=== PATIENT | female | born 1950 | race Caucasian/White ===

== ENCOUNTER 2022-01-23 17:54 | Emergency (ER) | payer MEDICARE, MEDICAID, SELFPAY ==
[2022-01-23 18:10] VITALS: BP 111/77; PULSE 84; RESP 16; TEMP 36.3; O2SAT 94; BMI 29.9
--- NOTE | 2022-01-23 18:15 | XRR_ITS ---
PROCEDURE INFORMATION: Exam: XR Chest Exam date and time: 01/23/2022 6:29 PM Age: 71 years old Clinical indication: Shortness of breath; Prior surgery; Surgery date: 6+ months; Surgery type: Defib, pacer; Additional info: SOB TECHNIQUE: Imaging protocol: XR of the chest. Views: 1 view. COMPARISON: CR Chest 1 view [id number] 03/21/2019 3:34 PM FINDINGS: Tubes, catheters and devices: Left chest ICD is present. Left chest implanted Loop recorder device is present. Thoracic epidural stimulator device is present unchanged in position from prior. Lungs: Emphysematous lung features. No focal airspace consolidation. Pleural spaces: Unremarkable. No pleural effusion. No pneumothorax. Heart/Mediastinum: Aortic valve replacements present. Moderate cardiomegaly. Bones/joints: Surgical hardware fixates proximal right humerus from old fracture. XR/XR chest 1V portable [id number] IMPRESSION: No acute pulmonary disease.
--- NOTE | 2022-01-23 18:15 | ECG_ITS ---
[facility] Test Date: 2022-01-23 Pat Name: Tiana Mayfield Department: Room: Gender: Female Chief Projectionist: : [id number] Requested By: Cody Mock Order Number: [id number] Celeste MD: Susannah Chaudhry M.D. Measurements Intervals [place] Rate: 77 P: 246 CA: 364 QRS: -45 QRSD: 172 T: 119 QT: 450 QTc: 511 Interpretive Statements ELECTRONIC ATRIAL PACEMAKER ELECTRONIC VENTRICULAR PACEMAKER ABNORMAL RHYTHM ECG No previous ECG available for comparison Electronically Signed On 01-24-2022 6:07:54 CDT by Susannah Chaudhry M.D. [id number]
--- NOTE | 2022-01-23 18:28 | CTR_ITS ---
PROCEDURE INFORMATION: Exam: CTA Chest With Contrast Exam date and time: 01/23/2022 8:03 PM Age: 71 years old Clinical indication: Cough and dyspnea and wheezing; Cough with hemorrhage; Prior surgery; Surgery date: 6+ months; Surgery type: Partial mastectomy/ defib/aaa graft; Patient HX: HX of pulmonary emboli /aortic valve replacement. Multiple pneumonias in the past/increasing cough over the last 2 days /this morning coughing up small amount of blood. Some slight dyspnea and wheezing denies any chest pain. No d dimer done; Additional info: SOB TECHNIQUE: Imaging protocol: Computed tomographic angiography of the chest with contrast. 3D rendering (Not supervised by radiologist): MIP and/or 3D reconstructed images were created by the technologist. Radiation optimization: All CT scans at this facility use at least one of these dose optimization techniques: automated exposure control; mA and/or kV adjustment per patient size (includes targeted exams where dose is matched to clinical indication); or iterative reconstruction. Contrast material: OMNI 350; Contrast volume: 75 ml; Contrast route: INTRAVENOUS (IV); COMPARISON: CR (CHEST, ) 01/23/2022 6:29 PM RADIATION DOSE METRICS: Total DLP (mGy-cm): 573.8 FINDINGS: Tubes, catheters and devices: Left chest ICD is present. Thoracic epidural stimulator device with unremarkable position. Pulmonary arteries: Normal. No pulmonary emboli. Aorta: Unremarkable. No aortic aneurysm. No aortic dissection. Veins: Partially visible IVC filter in the upper abdomen. Lungs: Partially calcified granuloma in the lingula. Emphysematous lung changes with coarse reticular interstitial appearance. Negative for space consolidation. Negative for endobronchial obstruction. No peripheral honeycombing. No bronchiectasis. Mild mosaic attenuation features. Pleural spaces: Unremarkable. No pneumothorax. No pleural effusion. Heart: Multichamber cardiac dilation. Negative for pericardial effusion. Aortic valve replacement. Mediastinal space: Unremarkable thoracic esophagus. Lymph nodes: Unremarkable. No enlarged lymph nodes. Bones/joints: Ununited median sternotomy. No acute thoracic fractures. The thoracic spine demonstrates moderate degenerative changes at multiple levels. Soft tissues: Unremarkable. CT/CT angio chest PE protcl [id number] IMPRESSION: 1. Negative for pulmonary embolism. 2. No focal pneumonia.
[2022-01-23 18:44] VITALS: BP 138/84; PULSE 91; RESP 16; O2SAT 94
--- NOTE | 2022-01-23 18:44 | ED_ITS ---
HPI - URI/Sore Throat General: Chief Complaint: Upper Respiratory Infection Stated Complaint: coughing up blood/raspy/low heart rate Time Seen by Provider: 01/23/22 18:01 Source: patient and EMS Mode of arrival: EMS Limitations: no limitations History of Present Illness: 71-year-old female who has multiple medical issues including history of pulmonary emboli she is on Eliquis long-term she also had aortic valve replacement. States she is had multiple pneumonias in the past states that she has had an increasing cough over the last 2 days became concerned because this morning she was coughing up some blood she states it was a small amount. She denies any worsening or improving factors does have some slight dyspnea and wheezing she wears oxygen at home as needed her pulse ox here is 94% on room air denies any chest pain. Associated symptoms: Deny abdominal pain, chills, chest pain, diarrhea, fever(s), headache(s), nausea or vomiting Review of Systems Const: Denies: fever(s), chills, body aches or change in appetite Eyes: Denies: blurry vision or eye discomfort ENMT: Denies: throat pain or dental pain Card: Denies: chest pain Resp: Reports: dyspnea, non-productive cough and wheezing GI: Denies: abdominal pain, nausea, vomiting or diarrhea : Denies: dysuria Musc: Denies: neck pain or back pain Skin/Breast: Denies: rash Neuro: Denies: headache(s) Psych: Denies: depression Florin/Lymph: Denies: easy bruising All/Imm: Denies: urticaria PFS ED PFSH: Medical History (Updated 01/23/22 @ 20:32 by Cody Mock MD) Pulmonary emboli Social History (Updated 01/23/22 @ 18:45 by Cody Mock MD) Substance/Drug Use: never Physical Exam Const: COMMON NORMALS: no acute distress, patient oriented x3 and healthy appearing HENMT: COMMON NORMALS: normocephalic and atraumatic HEAD & SCALP: normocephalic and atraumatic Eye: COMMON NORMALS: Equal, round and reactive pupils present and EOMs intact bilaterally PUPIL: Yes Equal, round and reactive pupils present Neck/C-Spine: COMMON NORMALS: full ROM and supple Chest: COMMONS NORMALS: normal inspection of the chest and normal palpation of entire chest wall Resp: COMMON NORMALS: No retractions and No use of accessory muscles AUSCULTATION: wheezes Cardio: COMMON NORMALS: regular rate, regular rhythm and No murmurs present (Cardio) RATE: regular rate RHYTHM: regular rhythm GI: COMMON NORMALS: Normal to inspection, nondistended, normoactive bowel sounds present, Soft to palpation, non-tender and no masses PALPATION: Yes Soft to palpation Extremity: COMMON NORMALS: normal to inspection and full ROM Neuro: COMMON NORMALS: patient oriented x3, moves all extremities and no focal motor deficits Psych: COMMON NORMALS: mental status grossly normal, Normal thought process present and cooperative THOUGHT PROCESS: Normal thought process present Skin: COMMON NORMALS: no rashes or lesions noted and no wounds GENERAL SKIN EXAM: no rashes or lesions noted Course Vital Signs: Vital signs: Vital Signs Temperature 97.3 F L 01/23/22 18:10 Pulse Rate 85 01/23/22 20:35 Respiratory Rate 20 H 01/23/22 20:35 Blood Pressure 127/94 01/23/22 20:35 Pulse Oximetry 93 01/23/22 19:24 MDM - URI/Sore Throat Medical Decision Making Patient presents here with some hemoptysis could be from a viral infection she is well-appearing here has had no hemoptysis here CT scan showed no pneumonia or PE blood works normal as well she stable for discharge is to follow-up with PCP in 2 to 4 days return if worsening she understands and agrees to plan. Lab Data : 01/23/22 18:43 01/23/22 18:43 Radiology Impressions Chest X-Ray 01/23/22 18:15 IMPRESSION: No acute pulmonary disease. Chest CTA 01/23/22 18:28 IMPRESSION: 1. Negative for pulmonary embolism. 2. No focal pneumonia. Laboratory Results WBC 8.3 10^3/uL (4.0-10.0) 01/23/22 18:43 RBC 4.57 10^6/uL (4.1-5.3) 01/23/22 18:43 Hgb 12.7 g/dL (11.5-15.3) 01/23/22 18:43 Hct 40.3 % (37.0-47.0) 01/23/22 18:43 MCV 88.2 fl (81-99) 01/23/22 18:43 MCH 27.8 pg (28.0-34.0) L 01/23/22 18:43 MCHC 31.5 g/dL (30.0-36.0) 01/23/22 18:43 RDW 15.6 % (12.1-15.1) H 01/23/22 18:43 Plt Count 224 10^3/cmm (130-400) 01/23/22 18:43 MPV 11.5 fL (7.4-10.4) H 01/23/22 18:43 Neut % (Auto) 50.2 % 01/23/22 18:43 Lymph % (Auto) 33.2 % 01/23/22 18:43 [place] % (Auto) 7.6 % 01/23/22 18:43 Eos % (Auto) 7.7 % 01/23/22 18:43 Baso % (Auto) 1.1 % 01/23/22 18:43 Neut # (Auto) 4.15 10^3/uL (1.8-7.7) 01/23/22 18:43 Lymph # (Auto) 2.8 10^3/uL (0.8-4.8) 01/23/22 18:43 [place] # (Auto) 0.6 10^3/uL (0.2-0.9) 01/23/22 18:43 Eos # (Auto) 0.6 10^3/uL (0.0-0.8) 01/23/22 18:43 Baso # (Auto) 0.1 10^3/uL (0.0-0.1) 01/23/22 18:43 Nucleated RBC % (auto) 0 % 01/23/22 18:43 Nucleated RBCs # 0.0 /100WBC 01/23/22 18:43 PT 14.80 SECONDS (12.1-14.9) 01/23/22 19:02 INR 1.12 (0.8-1.2) 01/23/22 19:02 Sodium 137 mmol/L (136-145) 01/23/22 18:43 Potassium 4.5 mmol/L (3.5-5.1) 01/23/22 18:43 Chloride 96 mmol/L (98-107) L 01/23/22 18:43 Carbon Dioxide 32 mmol/L (22-29) H 01/23/22 18:43 Anion Gap 13.5 (5-19) 01/23/22 18:43 BUN 24 mg/dL (8-23) H 01/23/22 18:43 Creatinine 1.0 mg/dL (0.5-0.9) H 01/23/22 18:43 GFR Calculation Not Reportable 01/23/22 18:43 Glucose 101 mg/dL (65-115) 01/23/22 18:43 Calculated Osmolality 288 mOsm/kg (285-295) 01/23/22 18:43 Calcium 8.9 mg/dL (8.5-10.5) 01/23/22 18:43 Total Bilirubin 0.8 mg/dL (0.15-1.2) 01/23/22 18:43 AST 23 U/L (0-32) 01/23/22 18:43 ALT 15 U/L (0-33) 01/23/22 18:43 Alkaline Phosphatase 152 IU/L (35-105) H 01/23/22 18:43 NT-Pro-B Natriuret Pep 1786 pg/mL (0-125) H 01/23/22 18:43 Total Protein 7.8 g/dL (6.6-8.7) 01/23/22 18:43 Albumin 4.3 g/dL (3.5-5.2) 01/23/22 18:43 Globulin 3.5 g/dL (1.3-4.6) 01/23/22 18:43 Influenza Type A Ag Negative (Negative) 01/23/22 19:02 Influenza Type B Ag Negative (Negative) 01/23/22 19:02 EKG Data EKG 1: I personally reviewed and interpreted this EKG as follows: EKG interpretation date: 01/23/22 EKG interpretation time: 19:01 Interpretation: atrial paced hr [address] or t wave abnormalities qrs 172 qtc 482 Discharge Plan Discharge Patient Disposition: Home Clinical Impression: Upper respiratory infection Prescriptions: No Action atorvastatin 40 mg tablet 40 mg PO DAILY 0RF buspirone 5 mg tablet 5 mg PO TID 0RF potassium chloride 10 mEq capsule, extended release 10 meq PO BID 0RF cephalexin 500 mg capsule 500 mg PO TID 0RF pantoprazole 40 mg tablet,delayed release (DR/EC) 40 mg PO DAILY 0RF bumetanide 1 mg tablet 1 mg PO DAILY PRN (Reason: Edema) 0RF metoprolol succinate 25 mg tablet extended release 24 hr 25 mg PO DAILY 0RF fluoxetine 20 mg capsule 20 mg PO DAILY 0RF levothyroxine 112 mcg tablet 112 mcg PO DAILY 0RF midodrine 10 mg tablet 10 mg PO BID 0RF duloxetine 60 mg capsule,delayed release(DR/EC) 60 mg PO DAILY 0RF pregabalin 150 mg capsule 150 mg PO TID@05,12,17 0RF pregabalin 200 mg capsule 200 mg PO DAILY@1700 0RF Rx Instructions: Take with 150mg in the evening Eliquis 5 mg tablet 5 mg PO BID 0RF Entresto 24-26 mg tablet 1 tab PO BID 0RF Zyrtec 10 mg Tablet 10 mg PO DAILY PRN (Reason: Allergy Symptoms) 0RF docusate sodium 100 mg Capsule 100 mg PO BID 0RF aspirin 81 mg Tablet,Chewable 81 mg PO DAILY 0RF Therems-M 9 mg iron-400 mcg Tablet 1 tab PO DAILY 0RF PreserVision AREDS-2 250-90-40-1 mg Capsule 1 tab PO BID 0RF Discharge Orders: Discharge ED (Routine); Ordered 01/23/22 Ordered By: Cody Mock Discharge Diet: Advance as tolerated Discharge Activity: Resume usual activity Patient Instructions: Hemoptysis Coding Level of Care Code ED Fibre [place] for [facility] Fwd Exam Comprehensive
[2022-01-23 18:49] LABS: Basophils # 0.1 10^3/uL (0.0-0.1); Basophils % 1.1 %; Eosinophils # 0.6 10^3/uL (0.0-0.8); Eosinophils % 7.7 %; Hematocrit 40.3 % (37.0-47.0); Hemoglobin 12.7 g/dL (11.5-15.3); Lymphocytes # 2.8 10^3/uL (0.8-4.8); Lymphocytes % 33.2 %; Mean Corpuscular HGB Conc 31.5 g/dL (30.0-36.0); Mean Corpuscular Hemoglobin 27.8 pg (28.0-34.0); Mean Corpuscular Volume 88.2 fl (81-99); Mean Platelet Volume 11.5 fL (7.4-10.4); Monocytes # 0.6 10^3/uL (0.2-0.9); Monocytes % 7.6 %; Neutrophils # 4.15 10^3/uL (1.8-7.7); Neutrophils % 50.2 %; Nucleated Red Blood Cells % 0 %; Platelet Count 224 10^3/cmm (130-400); Red Blood Count 4.57 10^6/uL (4.1-5.3); Red Cell Distribution Width 15.6 % (12.1-15.1); White Blood Count 8.3 10^3/uL (4.0-10.0)
[2022-01-23 19:16] LABS: Alanine Aminotransferase 15 U/L (0-33); Albumin Level 4.3 g/dL (3.5-5.2); Alkaline Phosphatase 152 IU/L (35-105); Anion Gap 13.5 (5-19); Aspartate Amino Transferase 23 U/L (0-32); Blood Urea Nitrogen 24 mg/dL (8-23); Calcium 8.9 mg/dL (8.5-10.5); Carbon Dioxide 32 mmol/L (22-29); Chloride 96 mmol/L (98-107); Globulin 3.5 g/dL (1.3-4.6); Glucose 101 mg/dL (65-115); NT Pro B Type Natriuretic Pept 1786 pg/mL (0-125); Osmolality Calculated 288 mOsm/kg (285-295); Potassium 4.5 mmol/L (3.5-5.1); Sodium 137 mmol/L (136-145); Total Bilirubin 0.8 mg/dL (0.15-1.2); Total Protein 7.8 g/dL (6.6-8.7)
[2022-01-23 19:17] VITALS: BP 141/78; PULSE 79; RESP 18; O2SAT 94
[2022-01-23] MEDS: ipratropium-albuterol 3 mL Neb INHALATION (19:22)
[2022-01-23 19:24] VITALS: PULSE 84; RESP 23; O2SAT 93
[2022-01-23 19:33] LABS: Influenza A by IFA Negative (Negative); Influenza B by IFA Negative (Negative)
[2022-01-23 19:36] LABS: INR 1.12 (0.8-1.2)
[2022-01-23] MEDS: iohexol 350 mg/mL 100 mL Btl IV (20:06)
[2022-01-23 20:35] VITALS: BP 127/94; PULSE 85; RESP 20
== END 2022-01-23 20:42 | disposition home or self-care (01) ==
PROVIDERS: Emergency Provider Emergency Medicine
DX: J06.9 Acute upper respiratory infection, unspecified (principal); Z86.711 Personal history of pulmonary embolism; Z79.01 Long term (current) use of anticoagulants; Z79.82 Long term (current) use of aspirin
CPT/HCPCS: 71045; 71275; 80053; 83880; 85025; 85610; 87804; 93005; 94640; 99283; Q9967